=== PATIENT | male | born 1970 | race Caucasian/White ===

== ENCOUNTER 2018-03-02 20:55 | Inpatient (IN) | payer MEDICARE, MEDICAID ==
[~2018-03-02] VITALS: Ht 180.3 cm; Wt 72.1 kg
[~2018-03-02 20:55] MED LIST: DARU400T2 PO; EMTR1TAB11 PO; GABA800T97 PO; HYDR-4005 PO; RITO100T PO; [UNRECOGNIZED DRUG - OTHER]
[2018-03-02] MEDS ORDERED: MORPHINE SULFATE 4 MG/ML CPJ (NOT FOR IM USE) IV STA (22:21)
[2018-03-02] MEDS ORDERED: ONDANSETRON HCL 4MG/2ML INJ IV STA (22:21)
[2018-03-02] MEDS ORDERED: PIPERACILLIN/TAZ 3.375G PREMIX 50 ML IV ONE (22:30)
[2018-03-02] MEDS ORDERED: SODIUM CHLORIDE 0.9% 1000ML BAG (SEPSIS BOLUS) IV ONE (22:30)
[2018-03-02] MEDS ORDERED: TETANUS, DIPHTHERIA, PERTUSSIS VAC/PF 0.5ML (>7YR OLD) IM ONE (22:30)
[2018-03-02] MEDS ORDERED: VANCOMYCIN 1 G PREMIX 200 ML IV ONE (22:30)
[2018-03-02 23:50] LABS: BASOPHILS % 0.5 % (0.0-2.0); EOSINOPHILS % 2.8 % (0.0-5.0); HEMATOCRIT. 38.3 % (42.0-52.0); HEMOGLOBIN. 13.2 g/dL (14.0-18.0); LYMPHOCYTES % 15.6 % (20.0-50.0); MEAN CORPUSCULAR HEMOGLOBIN 29.7 pg (28.0-32.0); MEAN CORPUSCULAR VOLUME 86.2 fL (80.0-94.0); MEAN PLATELET VOLUME 6.6 fl (7.4-10.4); MONOCYTES % 10.6 % (2.0-8.0); NEUTROPHILS % 70.5 % (40.0-76.0); PLATELET 323 x1000/uL (130-400); RED BLOOD CELL COUNT 4.45 mill/uL (4.7-6.1); RED CELL DISTRIBUTION WIDTH 14.8 % (11.6-14.6)
[2018-03-02 23:57] LABS: CHLORIDE 107 mEq/L (98-107)
[2018-03-03] MEDS ORDERED: MORPHINE SULFATE 10 MG/ML CPJ IV NR (00:15)
[2018-03-03 00:16] LABS: PROTHROMBIN TIME 10.3 sec (9.1-11.1)
[2018-03-03] MEDS ORDERED: HYDROCODONE/ACETAMINOPHEN 5/325MG TABLET PO PRN (07:00)
[2018-03-03] MEDS ORDERED: HYDROCODONE/ACETAMINOPHEN 10/325MG TABLET PO PRN (07:00)
[2018-03-03 08:00] VITALS: BP 114/81
[2018-03-03] MEDS ORDERED: ABAC1TAB14 PO (09:22)
[2018-03-03 09:30] VITALS: BP 114/81
[2018-03-03] MEDS ORDERED: CLONIDINE 0.1MG TABLET PO PRN (10:30)
[2018-03-03] MEDS ORDERED: ONDANSETRON HCL 4MG/2ML INJ IV PRN (10:30)
[2018-03-03] MEDS ORDERED: IPRATROPIUM/ALBUTEROL 0.5-3(2.5)MG/3ML NEB INH PRN (10:30)
[2018-03-03] MEDS ORDERED: DOCUSATE SODIUM 100MG CAPSULE PO PRN (10:30)
[2018-03-03] MEDS ORDERED: LORAZEPAM 0.5MG TABLET PO PRN (10:30)
[2018-03-03] MEDS ORDERED: ACETAMINOPHEN 325MG TABLET PO PRN (10:30)
[2018-03-03] MEDS ORDERED: NICOTINE 14MG PATCH TD SCH (11:00)
[2018-03-03 12:00] VITALS: BP 112/71
[2018-03-03] MEDS ORDERED: SULF1TAB48 MT (12:54)
[2018-03-03] MEDS ORDERED: AMOX-424 MT (12:54)
[2018-03-03] MEDS ORDERED: POTASSIUM CHLORIDE 20MEQ TABLET SR PO NR (13:15)
[2018-03-03 13:52] LABS: TOTAL IRON BINDING CAPACITY 232 ug/dL (250-450)
[2018-03-03] MEDS ORDERED: VANCOMYCIN 1250MG in DEXTROSE 5% WATER 250ML IV SCH (14:00)
[2018-03-03 14:06] LABS: FOLIC ACID (FOLATE) SERUM 10.6 ng/mL (>5.38)
[2018-03-03 15:33] VITALS: BP 130/89
[2018-03-03 16:00] VITALS: BP 130/89
[2018-03-03] MEDS ORDERED: VANCOMYCIN 750 MG PREMIX 150 ML IV SCH (22:00)
== END 2018-03-03 16:00 | disposition home or self-care (01) | DRG 603 ==
LOC: ER 20:55 → EDBEDREQ 03-03 00:41 → EDBEDREQSVC 03-03 00:41 → EDBEDREQDT 03-03 00:41 → EDBEDREQTM 03-03 00:41 → 6EST 03-03 02:50 → EDBEDREQTM 03-03 02:59 → EDBEDREQ 03-03 02:59 → ENRESERV 03-03 07:59
PROVIDERS: ADMIT Internal Medicine; ATTEND Internal Medicine
DX: L03.115 Cellulitis of right lower limb (principal); B20 Human immunodeficiency virus [HIV] disease; D64.9 Anemia, unspecified; F17.200 Nicotine dependence, unspecified, uncomplicated; J44.9 Chronic obstructive pulmonary disease, unspecified; Z93.3 Colostomy status; Z88.8 Allergy status to other drugs, medicaments and biological substances
CPT/HCPCS: 36415; 71045; 73630; 82607; 82728; 82746; 83540; 83550; 83605; 84145; 90471; 90715; 93971; 96361; 96374; 99285; J2270; J2405; J2543; J3370; J7030; J7060

== ENCOUNTER 2018-11-23 19:51 | Emergency (ER) | payer MEDICARE, MEDICAID ==
[~2018-11-23] VITALS: Ht 180.3 cm; Wt 71.0 kg
[~2018-11-23 19:51] MED LIST changes: +ABAC1TAB14 PO; +AMOX-424 MT; +SULF1TAB48 MT; -[UNRECOGNIZED DRUG - OTHER]
[2018-11-23] MEDS ORDERED: ONDANSETRON HCL 4MG/2ML INJ IV STA (20:53)
[2018-11-23] MEDS ORDERED: SODIUM CHLORIDE 0.9% 1,000 ML IV ONE (20:53)
[2018-11-23] MEDS ORDERED: SODIUM CHLORIDE 0.9% 1000ML BAG (SEPSIS BOLUS) IV ONE (21:00)
[2018-11-23] MEDS ORDERED: PIPERACILLIN/TAZ 3.375G PREMIX 50 ML IV ONE (21:00)
[2018-11-23] MEDS ORDERED: METRONIDAZOLE 500 MG PREMIX 100 ML IV ONE (21:00)
[2018-11-23 21:25] LABS: BASOPHILS % 0.5 % (0.0-2.0); EOSINOPHILS % 2.7 % (0.0-5.0); HEMATOCRIT. 47.3 % (42.0-52.0); HEMOGLOBIN. 15.9 g/dL (14.0-18.0); LYMPHOCYTES % 22.2 % (20.0-50.0); MEAN CORPUSCULAR HEMOGLOBIN 29.6 pg (28.0-32.0); MEAN CORPUSCULAR VOLUME 88.1 fL (80.0-94.0); MEAN PLATELET VOLUME 6.8 fl (7.4-10.4); NEUTROPHILS % 63.6 % (40.0-76.0); PLATELET 270 x1000/uL (130-400); RED BLOOD CELL COUNT 5.37 mill/uL (4.7-6.1); RED CELL DISTRIBUTION WIDTH 14.4 % (11.6-14.6)
[2018-11-23 21:29] LABS: CHLORIDE 106 mEq/L (98-107)
[2018-11-23 21:33] LABS: ETHANOL BLOOD < 10 mg/dL
[2018-11-23] MEDS ORDERED: MORPHINE SULFATE 4 MG/ML CPJ (NOT FOR IM USE) IV ONE (21:45)
[2018-11-23 23:43] LABS: CLARITY URINE CLEAR (CLEAR); COLOR URINE YELLOW (YELLOW); KETONES URINE NEGATIVE (NEGATIVE); LEUKOCYTE ESTERASE URINE NEGATIVE (NEGATIVE); NITRITE URINE NEGATIVE (NEGATIVE); OCCULT BLOOD URINE NEGATIVE (NEGATIVE); PROTEIN URINE NEGATIVE (NEGATIVE); SPECIFIC GRAVITY URINE 1.024 (1.005-1.030)
[2018-11-23 23:54] LABS: METHADONE URINE SCREEN NEGATIVE (NEGATIVE); OPIATES URINE SCREEN NEGATIVE (NEGATIVE)
[2018-11-23 23:55] LABS: *AMPHETAMINES SCREEN URINE PRESUMTIVE POSITIVE (NEGATIVE); *BARBITURATES SCREEN URINE NEGATIVE (NEGATIVE); *BENZODIAZEPINES SCREEN URINE NEGATIVE (NEGATIVE); *COCAINE SCREEN URINE NEGATIVE (NEGATIVE); CANNABINOID URINE SCREEN NEGATIVE (NEGATIVE); PHENCYCLIDINE URINE SCREEN NEGATIVE (NEGATIVE)
[2018-11-24 01:10] VITALS: BP 106/68
== END 2018-11-24 01:17 | disposition home or self-care (01) ==
LOC: ER 19:51 → CANBEDREQ 11-24 05:35
DX: N20.0 Calculus of kidney (principal); E86.0 Dehydration; F15.10 Other stimulant abuse, uncomplicated; R63.0 Anorexia; Z68.21 Body mass index [BMI] 21.0-21.9, adult
CPT/HCPCS: 36415; 71045; 74176; 80053; 80305; 80320; 81003; 83605; 83690; 84145; 84484; 85025; 85610; 87040; 87086; 93005; 96365; 96366; 96368; 96375; 99284; J2405; J2543; J3490; J7030; G0480

== ENCOUNTER 2019-03-18 14:23 | Emergency (ER) | payer MEDICARE, MEDICAID ==
[~2019-03-18] VITALS: Ht 180.3 cm; Wt 70.0 kg
[2019-03-18 15:20] VITALS: BP 129/89
== END 2019-03-18 17:00 | disposition left against medical advice (07) ==
LOC: ER 14:23
DX: Z53.21 Procedure and treatment not carried out due to patient leaving prior to being seen by health care provider (principal)

== ENCOUNTER 2021-03-20 18:51 | Emergency (ER) | payer MEDICAID, MEDICARE ==
[~2021-03-20] VITALS: Ht 180.3 cm; Wt 66.0 kg
[~2021-03-20 18:51] MED LIST changes: +HYDR-4001 MT
[2021-03-20 18:55] VITALS: BP 119/74
== END 2021-03-20 20:37 | disposition left against medical advice (07) ==
LOC: ER 18:51
DX: Z53.21 Procedure and treatment not carried out due to patient leaving prior to being seen by health care provider (principal); R42 Dizziness and giddiness
CPT/HCPCS: 82962; 93005; 99283

== ENCOUNTER 2021-08-25 18:31 | Emergency (ER) | payer MEDICARE, MEDICAID ==
[~2021-08-25] VITALS: Ht 180.3 cm; Wt 66.0 kg
[2021-08-25 18:41] VITALS: BP 102/66
== END 2021-08-25 20:16 | disposition left against medical advice (07) ==
LOC: ER 18:31
DX: Z53.21 Procedure and treatment not carried out due to patient leaving prior to being seen by health care provider (principal)

== ENCOUNTER 2024-10-21 07:23 | Emergency (ER) | payer BC, MEDICAID ==
[~2024-10-21] VITALS: Ht 177.8 cm; Wt 59.0 kg
[2024-10-21 07:33] VITALS: O2SAT 97
[2024-10-21 08:58] LABS: BASOPHILS % 0.7 % (0.0-2.0); EOSINOPHILS % 2.1 % (0.0-5.0); HEMATOCRIT. 41.4 % (42.0-52.0); HEMOGLOBIN. 13.5 g/dL (14.0-18.0); LYMPHOCYTES % 23.4 % (20.0-50.0); MEAN PLATELET VOLUME 6.4 fl (7.4-10.4); MONOCYTES % 8.8 % (2.0-8.0); NEUTROPHILS % 65.0 % (40.0-76.0); PLATELET 424 x1000/uL (130-400); RED BLOOD CELL COUNT 4.47 mill/uL (4.7-6.1); RED CELL DISTRIBUTION WIDTH 15.5 % (11.6-14.6)
[2024-10-21 09:08] LABS: CREATININE 1.1 mg/dL (0.6-1.3)
[2024-10-21 09:09] LABS: UREA NITROGEN BLOOD 16 mg/dL (9-23)
[2024-10-21 09:10] LABS: TROPONIN I HIGH SENSITIVITY 5 ng/L (3.0-53)
[2024-10-21 09:34] VITALS: BP 128/71; PULSE 76; RESP 15; TEMP 36.7; O2SAT 99
[2024-10-21 09:40] LABS: INR 1.0
[2024-10-21 10:43] LABS: CLARITY URINE CLOUDY (CLEAR); COLOR URINE YELLOW (YELLOW); GLUCOSE URINE NEGATIVE (NEGATIVE); KETONES URINE NEGATIVE (NEGATIVE); LEUKOCYTE ESTERASE URINE NEGATIVE (NEGATIVE); NITRITE URINE NEGATIVE (NEGATIVE); OCCULT BLOOD URINE NEGATIVE (NEGATIVE); PH URINE 7.0 (4.5-8.0); PROTEIN URINE NEGATIVE (NEGATIVE); SPECIFIC GRAVITY URINE 1.020 (1.005-1.030); UROBILINOGEN URINE 1.0 E.U./dL (0.2-1.0)
[2024-10-21 11:04] LABS: MUCUS URINE 2+ /lpf (NONE/TRACE); SQUAMOUS EPITHELIAL CELL URINE FEW /lpf (RARE/1+)
[2024-10-21 11:05] LABS: RBC URINE NONE SEEN /hpf (0-2); WBC URINE 0-2 /hpf (0-2)
[2024-10-21 11:06] LABS: AMORPHOUS SEDIMENT URINE 2+ /lpf; BACTERIA URINE NONE SEEN
[2024-10-21 11:11] LABS: *AMPHETAMINES SCREEN URINE PRESUMPTIVE POSITIVE (NEGATIVE); *BARBITURATES SCREEN URINE NEGATIVE (NEGATIVE); *BENZODIAZEPINES SCREEN URINE NEGATIVE (NEGATIVE); *COCAINE SCREEN URINE PRESUMPTIVE POSITIVE (NEGATIVE); METHADONE URINE SCREEN NEGATIVE (NEGATIVE)
[2024-10-21 11:12] LABS: CANNABINOID URINE SCREEN NEGATIVE (NEGATIVE); ECSTASY MDMA SCREEN URINE CONF.TEST INDICATED (NEGATIVE); OPIATES URINE SCREEN NEGATIVE (NEGATIVE); PHENCYCLIDINE URINE SCREEN NEGATIVE (NEGATIVE)
== END 2024-10-21 10:59 | disposition left against medical advice (07) ==
LOC: ER 07:23 → EDBEDREQ 09:45 → EDBEDREQTM 09:45 → ER 10:59 → ENRESERV 11:48 → CANBEDREQ 12:15
DX: R07.89 Other chest pain (principal); R05.9 Cough, unspecified; F17.210 Nicotine dependence, cigarettes, uncomplicated; F14.10 Cocaine abuse, uncomplicated; F15.10 Other stimulant abuse, uncomplicated; Z79.899 Other long term (current) drug therapy; Z98.890 Other specified postprocedural states
CPT/HCPCS: 36415; 71045; 80048; 80305; 81003; 83605; 84484; 85025; 85379; 93005; 93970; 99285